=== PATIENT | female | born 1940 | race Caucasian/White ===

== ENCOUNTER 2024-03-22 10:35 | Outpatient (RCR) | payer MEDICARE, BC, SELFPAY | END 2024-05-10 14:21 | disposition home or self-care (01) | PROVIDERS: Visit Provider Nurse Practitioner | DX: G44.86 Cervicogenic headache (principal); M54.2 Cervicalgia; Z51.89 Encounter for other specified aftercare; H51.11 Convergence insufficiency; R53.83 Other fatigue; R26.81 Unsteadiness on feet | CPT/HCPCS: 97140; 97162 ==